=== PATIENT | male | born 1995 | race Caucasian/White ===

== ENCOUNTER → 2017-11-23 | Outpatient (CLI) | payer OTHER, BC ==
--- NOTE | 2017-11-23 15:02 | EKG ---
FACILITY: [facility] [place] PATIENT NAME: LEO TAYLOR : [id number] MR: [id number] V: [id number] EXAM DATE: ORDERING PHYSICIAN: KRISTEN JENKINS TECHNOLOGIST: KATIE Agustin Reason : SOB Blood Pressure : / mmHG Vent. Rate : 066 BPM Atrial Rate : 066 BPM P-R Int : 120 ms QRS Dur : 094 ms QT Int : 396 ms P-R-T Axes : 039 051 010 degrees QTc Int : 415 ms Sinus rhythm Nonspecific T wave findings III, AVF No previous ECGs available Confirmed by AXEL CERVANTES ([id number]) on 11/23/2017 3:27:24 PM Referred By: REX Confirmed By:AXEL CERVANTES
--- NOTE | 2017-11-23 15:39 | RADIOLOGY IMAGING REPORT ---
FACILITY: [facility] - [place] PATIENT NAME: Dwain Fisher : 1995 MR: [id number] V: [id number] EXAM DATE: ORDERING PHYSICIAN: ASHKAN GOODMAN TECHNOLOGIST: Location: [facility] Patient: Dwain Fisher : 1995 Visit/Account:[id number] Date of Sevice: 11/23/2017 Exam type: CHEST PA AND LAT History: Eight stroke x1 month, chest pain and shortness of breath Comparison: February 28, 2017. Findings: The lungs are free of acute effusions, infiltrates or edema. There is no evidence of a pneumothorax or pneumomediastinum. Cardiac silhouette is normal in size. The trachea is in midline. There is a gentle dextroconvex scoliosis of the thoracic spine. IMPRESSION: 1. No acute cardiopulmonary process is seen Report Dictated By: Uyen Lewis MD at 11/23/2017 3:34 PM Report E-Signed By: Uyen Lewis MD at 11/23/2017 3:35 PM SALVATOREN:WILMER
== END ==
LOC: RAD 14:50
PROVIDERS: ATTEND Nurse Practitioner Family
DX: R07.9 Chest pain, unspecified (principal); R06.02 Shortness of breath; R03.0 Elevated blood-pressure reading, without diagnosis of hypertension
CPT/HCPCS: 71046; 93005

== ENCOUNTER → 2018-07-07 | Outpatient (REF) | payer OTHER, BC ==
[2018-07-07 11:18] LABS: PLATELET COUNT, AUTOMATED 186 K/uL (150-450)
== END ==
PROVIDERS: ATTEND Nurse Practitioner Family
DX: M10.9 Gout, unspecified (principal)
CPT/HCPCS: 82040; 82247; 82310; 82374; 82435; 82565; 82947; 84075; 84132; 84155; 84295; 84450; 84460; 84520; 84550; 85025